=== PATIENT | male | born 1985 | race Caucasian/White ===

== ENCOUNTER 2018-10-11 16:36 | Emergency (ER) | payer OTHER ==
[~2018-10-11] VITALS: Ht 177.8 cm; Wt 72.8 kg
[2018-10-11 16:38] VITALS: Ht 177.8 cm; Wt 72.8 kg
[2018-10-11] MEDS ORDERED: SOD CHLORIDE 0.9% 100 ML ONE (17:59)
[2018-10-11] MEDS ORDERED: IOHEXOL 300MG/ML 150 ML BTL ONE (17:59)
--- NOTE | 2018-10-11 18:52 | ERD ---
ER Documentation Chief Complaint Chief Complaint left upper quad abdominal pain, sent by pmd r/o splenomegaly HPI This is a 32-year-old male who was sent by a primary care for evaluation for abdominal pain. He has a history of polycythemia vera he is been having some pain in the left upper quadrant off and on for the past 3 weeks. Currently in the ER he has absolutely 0 pain. Patient states that he does abuse alcohol at times. But he has had no melena vomiting nausea or diarrhea. No shortness of breath or chest pain. He was sent to have his spleen evaluated ROS All systems reviewed and are negative except as per history of present illness. PMhx/Soc Medical and Surgical Hx: pt denies Medical Hx, pt denies Surgical Hx Hx Alcohol Use: No Hx Substance Use: No Hx Tobacco Use: No Smoking Status: Never smoker FmHx Family History: No coronary disease Physical Exam Vitals Vital Signs Date Temp Pulse Resp B/P (MAP) Pulse Ox O2 O2 Flow FiO2 Time Delivery Rate 10/11/18 97.9 97 18 144/82 96 16:38 (102) Physical Exam Const: Well-developed, well-nourished Head: Atraumatic, normocephalic Eyes: Normal Conjunctiva, PERRLA, EOMI, normal sclera, no nystagmus ENT: Normal External Ears, Nose and Mouth, moist mucus membranes. Neck: Full range of motion. No meningismus, no lymphadenopathy. Resp: Clear to auscultation bilaterally, no wheezing, rhonchi, rales Cardio: Regular rate and rhythm, no murmurs, S1 S2 present Abd: Soft, non tender x 4, non distended. Normal bowel sounds, no guarding or rebound, no pulsitile abdominal masses or bruits Skin: No petechiae or rashes, no ecchymosis , no maculopapular rash Back: No midline or flank tenderness Ext: No cyanosis, or edema, FROM x 4, normal inspection, neurovascul suleman intact x 4 Neur: Awake and alert, STR 5/5 x 4, sensation intact x 4, no focal findings, cerebellum intact Psych: Normal Mood and Affect Result Diagram: 10/11/18 1718 10/11/18 1718 Results 24 hrs Laboratory Tests Test 10/11/18 17:18 White Blood Count 6.0 10^3/ul Red Blood Count 5.46 10^6/ul Hemoglobin 17.1 g/dl Hematocrit 46.5 % Mean Corpuscular Volume 85.2 fl Mean Corpuscular Hemoglobin 31.3 pg Mean Corpuscular Hemoglobin Concent 36.8 g/dl Red Cell Distribution Width 11.2 % Platelet Count 198 10^3/UL Mean Platelet Volume 11.7 fl Immature Granulocytes % 0.300 % Neutrophils % 62.8 % Lymphocytes % 28.8 % Monocytes % 6.3 % Eosinophils % 1.3 % Basophils % 0.5 % Nucleated Red Blood Cells % 0.0 /100WBC Immature Granulocytes # 0.020 10^3/ul Neutrophils # 3.8 10^3/ul Lymphocytes # 1.7 10^3/ul Monocytes # 0.4 10^3/ul Eosinophils # 0.1 10^3/ul Basophils # 0.0 10^3/ul Nucleated Red Blood Cells # 0.0 10^3/ul Sodium Level 143 mmol/L Potassium Level 4.0 mmol/L Chloride Level 106 mmol/L Carbon Dioxide Level 26 mmol/L Anion Gap 11 Blood Urea Nitrogen 11 mg/dl Creatinine 0.70 mg/dl Est Glomerular Filtrat Rate mL/min > 60 mL/min Glucose Level 88 mg/dl Calcium Level 9.7 mg/dl Total Bilirubin 1.1 mg/dl Direct Bilirubin 0.00 mg/dl Indirect Bilirubin 1.1 mg/dl Aspartate Amino Transf (AST/SGOT) 23 IU/L Alanine Aminotransferase (ALT/SGPT) 26 IU/L Alkaline Phosphatase 77 IU/L Total Protein 7.6 g/dl Albumin 4.7 g/dl Globulin 2.90 g/dl Albumin/Globulin Ratio 1.62 Lipase 46 U/L Current Medications Medications Dose Sig/Sarah Start Time Status Last (Trade) Ordered Route PRN Stop Time Admin Dose Reason Admin IV Flush 10 ml STK-MED 10/11/18 DC 10/11/18 (NS 10 ml) ONCE .ROUTE 17:59 10/11/18 18:30 18:00 Sodium 100 ml @ ud STK-MED 10/11/18 DC 10/11/18 Chloride ONCE .ROUTE 17:59 10/11/18 18:30 18:00 Iohexol 150 ml STK-MED 10/11/18 DC 10/11/18 (Omnipaque ONCE .ROUTE 17:59 10/11/18 18:31 300mg/ ml) 18:00 Procedures/MDM Patient: ZUNILDA RAMOS : 1985 Age: 32 Sex: M MR #: [id number] DOS: 10/11/18 1700 Ordering MD: LOLLY PEREZ DO Location: E/R Room/Bed: PROCEDURE: CT SCAN OF THE ABDOMEN AND PELVIS NON CONTRAST CLINICAL INDICATION: Abdominal pain TECHNIQUE: Utilizing the multi-slice spiral CT scanner, Transaxial images were obtained through the abdomen and pelvis without contrast. Additional sagittal, coronal, MPR images were also obtained. DICOM images are available Radiation Dose: CTDI vol 7.69 mGy, DLP 457.36 mGy-cm. One of more of the following dose reduction techniques were utilized: -automatic exposure control -adjustment of the mA and/or kV according to patient size -Use of iterative reconstruction technique Contrast used: 100 cc Omnipaque 300 COMPARISON: None FINDINGS: Limited slices through the lung bases are clear. CT Abdomen Liver with patent portal and hepatic veins, generous spleen in size, pancreas, contracted gallbladder, nondistended stomach is seen. Normal origins of the celiac, SMA, bilateral renal arteries noted. Kidneys do not demonstrate any hydronephrosis or perinephric fluid collection. No significant retroperitoneal adenopathy seen. Bowel gas pattern appears nonspecific with the no free air or ascites noted. Appendix is seen appearing unremarkable. Moderate stool noted in the large bowel. No significant retroperitoneal adenopathy noted. CT pelvis: Rectosigmoid colon, bladder, prostate, sigmoid colon appears unremarkable. No pelvic ascites noted. IMPRESSION: Moderate colonic stool with no free air or ascites noted. No CT evidence of pancreatitis, hydronephrosis or appendicitis noted. RPTAT: AAOO Physician Jorge Date Time Electronically viewed and signed by Physician Jorge on 10/11/2018 1 9:53 MB/ CC: LOLLY PEREZ DO [id number] Patient does not show any evidence of splenic infarct or splenomegaly. The patient's is not hemoconcentrated or showing signs of polycythemia at this time. He does have a moderate amount of stool which I will treat with some MiraLAX. We will have him follow-up with his primary. His left abdominal pain is likely due to constipation Departure Diagnosis: Primary Impression: Constipation Constipation type: unspecified constipation type Qualified Codes: K59.00 - Constipation, unspecified Condition: Stable LOLLY PEREZ DO October 11, 2018 18:52
[2018-10-11] MEDS ORDERED: POLY17PO6 PO (20:17)
[2018-10-11 21:01] VITALS: BP 124/82; PULSE 69; RESP 18
== END 2018-10-11 21:01 | disposition home or self-care (01) ==
LOC: E/R 16:36
DX: K59.00 Constipation, unspecified (principal)
CPT/HCPCS: 36415; 74177; 80053; 83690; 85025; 99284; Q9967